=== PATIENT | female | born 1950 | race Caucasian/White ===

== ENCOUNTER → 2023-02-17 14:53 | Outpatient (CLI) | payer MEDICARE, MEDICAID, SELFPAY ==
--- NOTE | 2023-02-17 14:58 | DI.MRI.S_ITS ---
PROCEDURE: MR ABDOMEN WO/W CON INDICATIONS: Cyst of pancreas TECHNIQUE: Coronal HASTE, axial 2D FLASH in- and [id number]; axial breath-hold T2 FSE with fat saturation from the hepatic dome to the iliac crests. Oblique coronal thin-slice and radial thick slab HASTE through the biliary system. Dynamic axial VIBE during administration of contrast. Post-contrast coronal VIBE or 2D FLASH with fat saturation from the hepatic dome to the iliac crests. Optional diffusion weighted imaging and ADC may be performed. COMPARISON: [facility], [facility], US ABDOMEN, 11/03/2017, 8:56. [facility], [facility], MRI ABDOMEN W/W/O CONTRAST, 02/28/2020, 8:18. [facility], [facility], MRI ABDOMEN W/W/O CONTRAST, 02/14/2021, 8:11. FINDINGS: Image quality: Good. Pancreas and biliary system: 1.4 x 1.0 cm unilocular cyst in the ventral neck of the pancreas demonstrates a questionable connection to the main pancreatic duct which is smooth and nondilated. This cyst most recently measured 1.2 x 1.1 cm in 2020, but 1.4 x 0.9 cm in 2019. No enhancing septation or mural nodularity postcontrast. The wall is imperceptibly thin. The pancreas has an otherwise normal morphology without pancreatic tail atrophy. There is classic ductal anatomy. The biliary tree is nondilated Solid organs: Liver is mildly enlarged and demonstrates diffuse signal loss on T1 out of phase imaging with relative hyperintensity in the gallbladder fossa. No arterially enhancing mass. Gallbladder is normal. Spleen is normal in size and enhancement. No adrenal nodules. Kidneys are normal in size and enhancement, without hydronephrosis. Subcentimeter nonenhancing cortical renal lesions are too small to characterize. Proximal ureters are nondilated. Nodes and vessels: No retroperitoneal or mesenteric adenopathy by size criteria. Aorta and inferior vena cava are normal in size. Bowel and peritoneum: Unenhanced bowel loops are normal in caliber throughout. No free fluid. Lung bases: No basal pleural effusions. Heart size is normal. Bones and soft tissues: No ventral hernias. Bone marrow is normal in overall signal. Partially imaged breast implants. IMPRESSION: 1. Gradual interval growth in a unilocular pancreatic cyst with indeterminate connection to the pancreatic duct. Other than growth, there are no suspicious features. Follow-up pancreatic protocol MRI in one year, given interval growth, is recommended. 2. Hepatomegaly and mild hepatic steatosis. Dictated by: Maricruz Dunn M.D. on 02/18/2023 at 23:43 Approved by: Maricruz Dunn M.D. on 02/19/2023 at 0:11
== END ==
PROVIDERS: PCP Nurse Practitioner Family; Referring Provider Internal Medicine Gastroenterology; Visit Provider Internal Medicine Gastroenterology
DX: K86.2 Cyst of pancreas (principal); K76.0 Fatty (change of) liver, not elsewhere classified
CPT/HCPCS: 74183; A9579

== ENCOUNTER 2024-03-02 08:50 | Day surgery (SDC) | payer MEDICARE, MEDICAID, SELFPAY ==
[2024-03-02 09:33] VITALS: BP 166/88; PULSE 70; RESP 16; TEMP 36.6; O2SAT 99
[2024-03-02] MEDS: LACTATED RINGERS 1,000 ML 42 ML IV (09:40)
--- NOTE | 2024-03-02 10:11 | P.HP_ITS ---
History of Present Illness History of Present Illness Date Patient Seen: 03/02/24 Chief complaint: SDC Narrative: History of ulcerative colitis with last surveillance colonoscopy 2021. First diagnosed in 1992. Does have scant bleeding at times but normal bowel movements 1-2 per day. [facility] Medical History (Updated 03/02/24 @ 09:47 by Makeda Saeed RN) Ulcerative colitis Diabetes mellitus Encounter for colonoscopy due to history of adenomatous colonic polyps Encounter for colonoscopy due to history of colonic polyp Surgical History (Updated 03/02/24 @ 09:43 by Makeda Saeed RN) Hx of tonsillectomy History of salpingo-oophorectomy Social History Smoking Status: Never smoker alcohol intake: current Meds Home Medications and Allergies Home Medications Medication Instructions Recorded Confirmed Type clonazepam 2.5 mg PO PRN PRN Anxiety 03/02/24 03/02/24 History metformin 500 mg tablet,extended 1,000 mg PO BID 03/02/24 03/02/24 History release 24 hr metronidazole 0.75 % topical cream 1 applic topical BID 03/02/24 03/02/24 History Allergies Allergy/AdvReac Type Severity Reaction Status Date / Time amoxicillin [From Augmentin] Allergy Mild Rash Verified 03/02/24 09:46 clavulanic acid Allergy Mild Rash Verified 03/02/24 09:46 [From Augmentin] citalopram [From Celexa] Allergy Anxiety Verified 03/02/24 09:46 meperidine [From Demerol] AdvReac Mild Vomiting Verified 03/02/24 09:46 midazolam [From Versed] AdvReac Mild Vomiting Verified 03/02/24 09:46 codeine AdvReac Hallucinati Verified 03/02/24 09:46 ng Exam Vital Signs (past 8 hours): - 03/02/24 09:33 Temperature 97.8 F Pulse Rate 70 Respiratory Rate 16 Blood Pressure 166/88 H Pulse Oximetry 99 Oxygen Delivery Method Room Air Oxygen Delivery Method Room Air Narrative Exam Narrative: Oropharynx free of lesions Chest clear to auscultation percussion Cardiac exam reveals no S3 or murmur Assessment & Plan Assessment & Plan narrative: History of ulcerative colitis and possible history of adenomatous colon polyps need for follow-up colonoscopy with multiple biopsies. Risks, benefits, alternatives have been explained. The question will be follow-up interval. At her distance from diagnosis standard recommendations would be follow-up colonoscopy with biopsies yearly.
--- NOTE | 2024-03-02 10:13 | P.OP.COLON_ITS ---
Operative Date/Time/Diagnoses Date of procedure: 03/02/24 Pre-op diagnosis: See indication and findings Procedure & Clinicians Study performed: Colonoscopy with biopsy Indications: History of ulcerative colitis currently under reasonable control Surgeon: Micheal Martin Procedure Notes Procedure in detail: After informed consent was obtained patient was placed in left lateral decubitus position. The video colonoscope was introduced the rectum slowly advanced to the sigmoid colon.. Preparation was poor with semi solid stool present.. On slow withdrawal mucosa was carefully examined. The scope was removed. The patient tolerated procedure well. Blood loss none Complications none Sedation mac Findings 1. Active proctosigmoiditis to 15 cm from anal verge. 2. Otherwise negative to 25 cm at which point the preparation was so poor we had to stop the procedure. Daksha will need to be set up for follow-up colonoscopy with either myself or Dr. Harding at [facility] with extra doses of preparation.
[2024-03-02 10:47] VITALS: BP 113/63; PULSE 66; RESP 23; TEMP 36.2; O2SAT 95
[2024-03-02 10:53] VITALS: BP 119/67; PULSE 63; RESP 18; O2SAT 95
[2024-03-02 10:58] VITALS: BP 126/80; PULSE 65; RESP 13; TEMP 36.5; O2SAT 95
== END 2024-03-02 11:12 | disposition home or self-care (01) ==
PROVIDERS: PCP Nurse Practitioner Family; Referring Provider Internal Medicine Gastroenterology; Visit Provider Internal Medicine Gastroenterology
PROC: 0DJD8ZZ Inspection of Lower Intestinal Tract, Via Natural or Artificial Opening Endoscopic (ICD-10-PCS; CPT 45378; principal; 2024-03-02 10:00)
DX: K63.89 Other specified diseases of intestine (principal); Z53.09 Procedure and treatment not carried out because of other contraindication
CPT/HCPCS: 45378; J2704

== ENCOUNTER → 2024-05-30 11:48 | Outpatient (CLI) | payer MEDICARE, MEDICAID, SELFPAY | PROVIDERS: PCP Nurse Practitioner Family; Visit Provider Urology | DX: R39.9 Unspecified symptoms and signs involving the genitourinary system (principal) | CPT/HCPCS: 87077; 87086 ==

== ENCOUNTER 2024-06-27 09:20 | Day surgery (SDC) | payer MEDICARE, MEDICAID, SELFPAY ==
--- NOTE | 2024-06-27 | PATH_ITS ---
[facility] Accession Number: [id number] No. of containers..07 Tissue . 01 Material submitted: . PART A: colon - ASCENDING COLON BIOPSY PART B: colon - TRANSVERSE COLON BIOPSY PART C: colon - TRANSVERSE COLON POLYP PART D: colon - DESCENDING COLON BIOPSY PART E: colon - SIGMOID COLON BIOPSY PART F: rectum - RECTUM BIOPSY PART G: rectum - RECTAL POLYP . 01 Diagnosis: A. ASCENDING COLON, BIOPSY: Colonic mucosa with mild melanosis coli. Negative for active, chronic, and microscopic colitis. Negative for dysplasia and malignancy. . B. TRANSVERSE COLON, BIOPSY: Colonic mucosa with mild melanosis coli. Negative for active, chronic, and microscopic colitis. Negative for dysplasia and malignancy. . C. TRANSVERSE COLON POLYP: Tubular adenoma. . D. DESCENDING COLON, BIOPSY: Colonic mucosa with mild melanosis coli. Negative for active, chronic, and microscopic colitis. Negative for dysplasia and malignancy. . E. SIGMOID COLON, BIOPSY: Colonic mucosa with mild melanosis coli. Negative for active, chronic, and microscopic colitis. Negative for dysplasia and malignancy. . F. RECTUM, BIOPSY: Mild active colitis with mild crypt architectural distortion; please see comment. Negative for granulomas, dysplasia or malignancy. . G. RECTAL POLYP: Tubular adenoma. [facility] 06/29/2024 1317 Local . 01 Comment: F. The findings in the rectal biopsy raise a differential diagnosis including infection, drug/toxin-induced injury, solitary rectal ulcer, and in the appropriate clinical setting, idiopathic inflammatory bowel disease. . 01 Electronically signed: . Erik Garcia MD, PhD, Pathologist NPI- [id number] . 01 Gross description: . A. Received in formalin with two patient identifiers and ascending colon biopsy, are three herrera soft tissue fragments, 0.3 to 0.5 cm in greatest dimension. Submitted in A1. B. Received in formalin with two patient identifiers and transverse colon biopsy, are four herrera soft tissue fragments, 0.2 to 0.4 cm in greatest dimension. Submitted in B1. C. Received in formalin with two patient identifiers and transverse polyp, is a single herrera soft tissue fragment, 0.4 cm in greatest dimension. Submitted in C1. D. Received in formalin with two patient identifiers and descending colon biopsy, are three herrera soft tissue fragments, 0.3 to 0.4 cm in greatest dimension. Submitted in D1. E. Received in formalin with two patient identifiers and sigmoid colon biopsy, are four herrera soft tissue fragments, 0.2 to 0.5 cm in greatest dimension. Submitted in E1. F. Received in formalin with two patient identifiers and rectum biopsy, are four herrera soft tissue fragments, all measuring 0.3 cm in greatest dimension. Submitted in F1. G. Received in formalin with two patient identifiers and rectal polyp, are two herrera soft tissue fragments, 0.3 to 0.5 cm in greatest dimension. Submitted in G1. ([id number]) /MRV 06/28/2024 1120 Local . 01 Pathologist provided ICD-10: K59.04, K62.5, K52.9, K52.89, D12.3, D12.8 . 01 CPT . 500927, 058742, 714120, 622738, 105456, 694259, 454738 Specimen Comment: A courtesy copy of this report has been sent to [phone] Performed at: [address] [id number], [place], [place] [id number] MD Anthony Rodriguez MD Phone: [phone]
[2024-06-27 10:19] VITALS: BP 175/93; PULSE 80; RESP 16; TEMP 36.2; O2SAT 98
[2024-06-27] MEDS: LACTATED RINGERS 1,000 ML 42 ML IV ×2 (10:26→11:46)
--- NOTE | 2024-06-27 10:39 | P.HP_ITS ---
History of Present Illness History of Present Illness Date Patient Seen: 06/27/24 Time Patient Seen: 10:39 Chief complaint: SDC Narrative: 74-year-old female with a history of ulcerative colitis, colon polyps, and intermittent rectal bleeding. Recent attempt at colonoscopy for surveillance and diagnostics was incomplete secondary to prep. [facility] Medical History Hx of renal calculi Hx of hyperlipidemia Hx of gout Hx of gastroesophageal reflux (GERD) History of chronic urinary tract infection Hx of iron deficiency anemia Ulcerative colitis Diabetes mellitus Encounter for colonoscopy due to history of adenomatous colonic polyps Encounter for colonoscopy due to history of colonic polyp Surgical History Hx of tonsillectomy History of salpingo-oophorectomy Family History Father Cancer Kidney stone Social History marital status: unmarried,single Smoking Status: Never smoker alcohol intake: current caffeine: Yes Type(s) of exercise: regular exercise frequency: 3-4 times per week duration: 60-90 minutes/day Meds Home Medications and Allergies Home Medications Medication Instructions Recorded Confirmed Type clonazepam 2.5 mg PO PRN PRN Anxiety 03/02/24 05/30/24 History metformin 500 mg tablet,extended 1,000 mg PO BID 03/02/24 06/27/24 History release 24 hr metronidazole 0.75 % topical cream 1 applic topical BID 03/02/24 05/30/24 History conjugated estrogens 0.625 mg/gram 0.625 mg vaginal DAILY 05/30/24 05/30/24 History vaginal cream ivermectin 1 % topical cream 1 applic topical DAILY 05/30/24 05/30/24 History Allergies Allergy/AdvReac Type Severity Reaction Status Date / Time amoxicillin [From Augmentin] Allergy Mild Rash Verified 06/27/24 10:11 clavulanic acid Allergy Mild Rash Verified 06/27/24 10:11 [From Augmentin] citalopram [From Celexa] Allergy Anxiety Verified 06/27/24 10:11 meperidine [From Demerol] AdvReac Mild Vomiting Verified 06/27/24 10:11 midazolam [From Versed] AdvReac Mild Vomiting Verified 06/27/24 10:11 codeine AdvReac Hallucinati Verified 06/27/24 10:11 ng Review of Systems Review of Systems ROS: Yes All systems reviewed with the patient and are negative except as otherwise documented Exam Vital Signs (past 8 hours): - 06/27/24 10:19 Temperature 97.2 F L Pulse Rate 80 Respiratory Rate 16 Blood Pressure 175/93 H Pulse Oximetry 98 Oxygen Delivery Method Room Air Oxygen Delivery Method Room Air Const General: cooperative HENMT Head: normal to inspection Eyes General: appearance normal, both eyes and all related structures Neck Neck: normal visual inspection Chest Chest: normal inspection of the chest Resp Effort & Inspection: normal respiratory effort Cardio Rate: regular rate GI Inspection: normal to inspection Skin General: no rashes or lesions noted Neuro General: patient alert and patient awake Extrem General: normal to inspection and no pedal edema Psych Appearance: grossly normal Assessment & Plan Assessment & Plan narrative: 74-year-old female with ulcerative colitis colon polyps and rectal bleeding. Colonoscopy is pursued today. Time-Based Coding :: [TOTAL MINUTES] spent with patient and on the chart (including review of chart, obtaining history, exam, reviewing outside data, placing orders, documenting exam and treatment plan, and counseling patient) on [DATE].
--- NOTE | 2024-06-27 10:40 | PM.PREOP ---
Pre-operative Note Interval Note History & Physical reviewed/Exam performed by Physician: Yes Changes to H&P: No ASA Class (for procedural sedation): II
--- NOTE | 2024-06-27 11:56 | P.OP.COLON_ITS ---
Operative Date/Time/Diagnoses Date of procedure: 06/27/24 Time of procedure: 11:56 Pre-op diagnosis: History of ulcerative colitis, colon polyps, rectal bleeding. Post-op diagnosis: same Procedure & Clinicians Study performed: Colonoscopy with biopsies and hot snare polypectomy Same procedure as scheduled: Yes Indications: History of ulcerative colitis, colon polyps, rectal bleeding. Surgeon: Aaron Harding Procedure Notes SCOAP/Timeout: Done Procedure in detail: After the risks and benefits were explained, written and verbal informed consent was obtained. The patient was brought into the procedure room and placed into the left lateral decubitus position. Please see anesthesia notes for sedation details. Digital rectal examination was accomplished. The scope was introduced into the patient and advanced under direct visualization to the cecum as identified by the appendiceal orifice and ileocecal valve. The scope was slowly withdrawn to carefully examine the mucosa for any defects or lesions. Comprehe nsive imaging was accomplished throughout the rectum including the dentate line. The colon was decompressed, the scope was then removed from the patient who tolerated the procedure well. Pediatric colonoscope Bowel prep adequate Scope withdrawal time: 27 minutes Sedation minutes: 45 Complications: none Impression: There was granularity scattered mucus exudate erythema friability from the dentate line to about 15 cm from the anal verge. From the rectosigmoid through the right colon up to splenic flexure was scattered scarring and an occasional classic pseudopolyp but no active inflammation. There were some scattered pseudopolyps throughout the descending and transverse. One small probable pseudopolyp was removed with cold forceps in the proximal transverse. There was some mild melanosis coli in the mid and right colon. The terminal ileum was interrogated and appeared normal. In the distal rectum approaching the dentate line was a sessile polyp measuring up to about 7 mm in greatest dimension removed with hot snare polypectomy. This required 2 snare excisions. All of the polyp appeared to have been excised. Segmental biopsies x4 were taken from the ascending, transverse, descending, sigmoid, and finally rectum. Endoscopic diagnosis 1. [id number] inflammation from the dentate line to the rectosigmoid junction 2. Left colon scarring and scattered pseudopolyps 3. Rectal polyp Post-procedure Plan for aftercare: 1. Await histology 2. Follow-up short-term GI clinic to discuss revision of IBD therapy 3. Surveillance colonoscopy timing will be contingent on histopathology results. Disposition: PACU
[2024-06-27 11:57] VITALS: BP 152/74; PULSE 63; RESP 18; TEMP 36.2; O2SAT 99
[2024-06-27 12:03] VITALS: BP 165/81; PULSE 65; RESP 17; O2SAT 99
[2024-06-27 12:08] VITALS: BP 153/62; PULSE 67; RESP 12; O2SAT 99
[2024-06-27 12:19] VITALS: BP 165/81; PULSE 69; RESP 13; O2SAT 99
== END 2024-06-27 12:27 | disposition home or self-care (01) ==
PROVIDERS: PCP Physician Assistant; Referring Provider Internal Medicine Gastroenterology; Visit Provider Internal Medicine Gastroenterology
PROC: 0DJD8ZZ Inspection of Lower Intestinal Tract, Via Natural or Artificial Opening Endoscopic (ICD-10-PCS; CPT 45378; principal; 2024-06-27 11:00)
DX: K62.5 Hemorrhage of anus and rectum (principal); Z87.19 Personal history of other diseases of the digestive system; Z86.010 Personal history of colon polyps; K63.89 Other specified diseases of intestine; D12.3 Benign neoplasm of transverse colon; K52.9 Noninfective gastroenteritis and colitis, unspecified; D12.8 Benign neoplasm of rectum
CPT/HCPCS: 45385; 45380; 82962; J2704

== ENCOUNTER 2024-09-19 10:08 | Day surgery (SDC) | payer MEDICARE, MEDICAID, SELFPAY ==
--- NOTE | 2024-09-19 | PATH_ITS ---
[facility] Accession Number: [id number] No. of containers..03 Tissue . 01 Material submitted: . PART A: colon - TRANSVERSE COLON POLYP PART B: rectum - RANDOM RECTAL SITE BIOPSIES PART C: rectum - RECTAL POLYPECTOMY SITE BIOPSIES . 01 Diagnosis: Part A: TRANSVERSE COLON POLYP : Colonic mucosa with focal mucosal hyperplasia. No neoplasm identified. . Part B: RANDOM RECTAL SITE BIOPSIES: Colonic mucosa with no diagnostic alterations. No active inflammation or dysplasia identified. . Part C: RECTAL POLYPECTOMY SITE BIOPSIES: 1. Tubular adenoma (in two biopsy fragments). 2. Hyperplastic polyp (in one biopsy fragment). [facility] 09/21/20241732 Local . 01 Electronically signed: . Anthony Rodriguez MD, Pathologist NPI- [id number] . 01 Gross description: . A. Received in formalin with two patient identifiers and transverse colon polyp, is a single herrera soft tissue fragment, 0.3 cm in greatest dimension, submitted in A1. . B. Received in formalin with two patient identifiers and rectal biopsy, are two herrera soft tissue fragments, 0.2 to 0.3 cm in greatest dimension, submitted in B1. . C. Received in formalin with two patient identifiers and rectal polyp, are three herrera soft tissue fragments, all measuring 0.3 cm in greatest dimension, submitted in C1. ([id number]) /MRV 09/21/20241732 Local . 01 Pathologist provided ICD-10: D12.8, K63.5 . 01 CPT . 702673, 961762, 922346 Specimen Comment: A courtesy copy of this report has been sent to [phone] Performed at: [address] [id number] MD Anthony Rodriguez MD Phone: [phone]
[2024-09-19 10:52] VITALS: BP 150/89; PULSE 71; RESP 16; TEMP 36.1; O2SAT 99
--- NOTE | 2024-09-19 11:10 | P.HP_ITS ---
History of Present Illness History of Present Illness Date Patient Seen: 09/19/24 Time Patient Seen: 11:10 Chief complaint: SDC Narrative: 74-year-old female with longstanding ulcerative colitis here for early repeat surveillance. She had an adenoma resected from the rectum and definitely had active inflammation in the left colon. She has since been placed on some mesalamine and seems to be doing much better from an IBD standpoint. She also has some pseudopolyps but 1 of these that we sampled from the transverse colon came back as a tubular adenoma as well. Repeat early colonoscopy is therefore pursued today. COUNTS INCLUDE 234 BEDS AT THE [facility] Medical History Hx of renal calculi Hx of hyperlipidemia Hx of gout Hx of gastroesophageal reflux (GERD) History of chronic urinary tract infection Hx of iron deficiency anemia Ulcerative colitis Diabetes mellitus Encounter for colonoscopy due to history of adenomatous colonic polyps Encounter for colonoscopy due to history of colonic polyp Surgical History Hx of tonsillectomy History of salpingo-oophorectomy Family History Father Cancer Kidney stone Social History marital status: unmarried,single Smoking Status: Never smoker alcohol intake: current caffeine: Yes Type(s) of exercise: regular exercise frequency: 3-4 times per week duration: 60-90 minutes/day Meds Home Medications and Allergies Home Medications Medication Instructions Recorded Confirmed Type clonazepam 2.5 mg PO PRN PRN Anxiety 03/02/24 05/30/24 History metformin 500 mg tablet,extended 1,000 mg PO BID 03/02/24 06/27/24 History release 24 hr metronidazole 0.75 % topical cream 1 applic topical BID 03/02/24 05/30/24 History conjugated estrogens 0.625 mg/gram 0.625 mg vaginal DAILY 05/30/24 05/30/24 History vaginal cream ivermectin 1 % topical cream 1 applic topical DAILY 05/30/24 05/30/24 History Allergies Allergy/AdvReac Type Severity Reaction Status Date / Time amoxicillin [From Augmentin] Allergy Mild Rash Verified 09/19/24 10:41 clavulanic acid Allergy Mild Rash Verified 09/19/24 10:41 [From Augmentin] citalopram [From Celexa] Allergy Anxiety Verified 09/19/24 10:41 meperidine [From Demerol] AdvReac Mild Vomiting Verified 09/19/24 10:41 midazolam [From Versed] AdvReac Mild Vomiting Verified 09/19/24 10:41 codeine AdvReac Hallucinati Verified 09/19/24 10:41 ng Review of Systems Review of Systems ROS: Yes All systems reviewed with the patient and are negative except as otherwise documented Exam Vital Signs (past 8 hours): - 09/19/24 10:52 Temperature 97 F L Pulse Rate 71 Respiratory Rate 16 Blood Pressure 150/89 H Pulse Oximetry 99 Oxygen Delivery Method Room Air Oxygen Delivery Method Room Air Const General: cooperative HENMT Head: normal to inspection Eyes General: appearance normal, both eyes and all related structures Neck Neck: normal visual inspection Chest Chest: normal inspection of the chest Resp Effort & Inspection: normal respiratory effort Cardio Rate: regular rate GI Inspection: normal to inspection Skin General: no rashes or lesions noted Neuro General: patient alert and patient awake Extrem General: normal to inspection and no pedal edema Psych Appearance: grossly normal Assessment & Plan Assessment & Plan narrative: 74-year-old female with longstanding ulcerative colitis. She had adenomatous polyps removed at our last exam and an early repeat surveillance colonoscopy is pursued today. Time-Based Coding :: [TOTAL MINUTES] spent with patient and on the chart (including review of chart, obtaining history, exam, reviewing outside data, placing orders, documenting exam and treatment plan, and counseling patient) on [DATE].
--- NOTE | 2024-09-19 11:12 | PM.PREOP ---
Pre-operative Note Interval Note History & Physical reviewed/Exam performed by Physician: Yes Changes to H&P: No ASA Class (for procedural sedation): II
--- NOTE | 2024-09-19 12:44 | PM.OP.COLON ---
Operative Date/Time/Diagnoses Date of procedure: 09/19/24 Time of procedure: 12:44 Pre-op diagnosis: Adenomatous colon polyps, longstanding ulcerative colitis Post-op diagnosis: same Procedure & Clinicians Study performed: Colonoscopy with biopsies Same procedure as scheduled: Yes Indications: Longstanding ulcerative colitis and adenomatous colon polyps. Surgeon: Aaron Harding Procedure Notes SCOAP/Timeout: Done Procedure in detail: After the risks and benefits were explained, written and verbal informed consent was obtained. The patient was brought into the procedure room and placed into the left lateral decubitus position. Please see anesthesia note for sedation details. Digital rectal examination was accomplished. The scope was introduced into the patient and advanced under direct visualization to the cecum as identified by the appendiceal orifice and ileocecal valve. The scope was slowly withdrawn to carefully examine the mucosa for any defects or lesions. Comprehensive imaging was accomplished throughout the rectum including the dentate line. The colon was decompressed, the scope was then removed from the patient who tolerated the procedure well. Pediatric colonoscope Bowel prep adequate Scope withdrawal time: 22 minutes Sedation minutes: 38 Complications: none Impression: There was a loss of the classic vascularity within the rectum. There was granularity present within the rectum. No evidence of any active inflammation. There was scattered scarring from the rectosigmoid up through to about the splenic flexure but no evidence of any active inflammation. In the transverse colon there were some scattered classic very small pseudopolyps. One of these was sampled with cold forceps for histopathologic analysis. No sign of any inflammation. No pathology appreciated whatsoever in the right colon. In the rectum I could see a stellate scar from prior polypectomy. Random rectal biopsies were acquired and submitted alone. I then sampled multiple locations at the prior polypectomy site to exclude any residual adenomatous features. There was no sign of any active inflammation in the rectum. Eleven photographs were taken for today's exam. Endoscopic diagnosis 1. Quiescent left-sided colitis with scattered scarring and pseudopolyps 2. No evidence of active inflammation 3. Rectal polypectomy site biopsies Post-procedure Plan for aftercare: 1. Await histology. 2. Continue mesalamine. 3. Follow up short term in GI clinic to discuss results and the long-term surveillance plan here. 4. If all histology is reassuring, at the latest, repeat colonoscopy for surveillance would be suggested for 1 year. Disposition: PACU
[2024-09-19 12:46] VITALS: BP 127/73; PULSE 82; RESP 15; TEMP 36.2; O2SAT 99
[2024-09-19 12:51] VITALS: BP 136/72; PULSE 69; RESP 17; O2SAT 98
[2024-09-19 12:56] VITALS: BP 142/78; PULSE 69; RESP 20; O2SAT 98
[2024-09-19 13:03] VITALS: BP 152/84; PULSE 65; RESP 16; O2SAT 98
== END 2024-09-19 13:26 | disposition home or self-care (01) ==
PROVIDERS: PCP Physician Assistant; Referring Provider Internal Medicine Gastroenterology; Visit Provider Internal Medicine Gastroenterology
PROC: 0DJD8ZZ Inspection of Lower Intestinal Tract, Via Natural or Artificial Opening Endoscopic (ICD-10-PCS; CPT 45378; principal; 2024-09-19 12:30)
DX: K51.50 Left sided colitis without complications (principal); Z86.0101 Personal history of adenomatous and serrated colon polyps; K63.5 Polyp of colon; D12.8 Benign neoplasm of rectum
CPT/HCPCS: 45380; J2704